=== PATIENT | female | born 1995 | race Caucasian/White ===

== ENCOUNTER 2016-07-23 00:39 | Emergency (ER) | payer BC ==
[2016-07-23 00:45] VITALS: BP 134/74
[2016-07-23] MEDS ORDERED: Albuterol/Ipratropium 3.0-0.5 MG/3 ML Neb Soln NEB ONE (00:53)
--- NOTE | 2016-07-23 00:53 | EDM.PDOC ---
ED HPI Allergic Reaction - General Chief Complaint: Allergic Reaction Stated Complaint: CHEST PAIN LABORED BREATHING Time Seen by Provider: 07/23/16 00:48 Source of Information: Reports: Patient History Limitations: Reports: No limitations - History of Present Illness INITIAL COMMENTS - FREE TEXT/NARRATIVE: 20-year-old female presents the ED with dyspnea and a sense of fullness across her lower chest. Patient has a chronic history of multiple allergies and history of asthma. Also has a history of anxiety depression. She reports no increasing cough or sputum production. No fever or chills. She is running and states that she's been able to do so without the use of albuterol inhaler prior to running. Tonight she started to feel restless and a little short of breath but which interpreted as a bit of a panic attack. However this pressure in her lower ribs and across her upper abdomen that she appreciated versus pressure in her throat or of central chest. She did use her albuterol nebulizer treatment at home with some improvement in her symptoms. She denies cough at this time. Still feels a little short of breath and somewhat restless. Symptom Onset Date: 07/22/16 Symptom Onset Time: 23:30 Timing/Duration: Reports: Minutes:, Gradual onset Location, Skin: Reports: chest (Shortness of breath and dyspnea-- sense that she cannot get a full deep breath.) Characteristics: Reports: other (Patient has chronic psoriasis controlled with Humira. This is her second course of Humira she just started again a month ago.) Quality: Reports: Other (Dyspnea) Severity: moderate Known identified source: no Place of Occurrence: home Sick Contact: no Associated Symptoms: Reports: shortness of breath, chest pain. 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 (see below) - Related Data Allergies/ADRs: Allergies Allergy/AdvReac Type Severity Reaction Status Date / Time apremilast [From Otezla] Allergy Hives Verified 03/31/16 02:47 cats, dogs, trees Allergy Hives Uncoded 03/31/16 02:47 shellfish Allergy Cannot Uncoded 03/31/16 02:47 Remember Home Meds: Home Meds Albuterol Sulfate 0.63 mg IH DAILY PRN 03/19/16 [History] Albuterol [Ventolin HFA] 8 gm INH QID PRN 03/19/16 [History] Budesonide [Pulmicort] 0.25 mg IH DAILY PRN 03/19/16 [History] Montelukast [Singulair] 10 mg PO ONETIME 03/19/16 [History] Triamcinolone Acetonide [Triamcinolone Acetonide 0.1% Crm] 15 gm TOP BID [History] Past Medical History Respiratory History: Reports: Asthma Psychiatric History: Reports: Anxiety, Depression Dermatologic History: Reports: Eczema, Psoriasis (Patient is currently on Humira for the second time for psoriasis control. Started again about a month ago) - Infectious Disease History Infectious Disease History: Reports: MRSA Other Infectious Disease History: throat Social & Family History - Tobacco Use Smoking Status *Q: Never Smoker Second Hand Smoke Exposure: No - Caffeine Use Caffeine Use: Reports: None - Recreational Drug Use Recreational Drug Use: No - Living Situation & Occupation Living situation: Reports: single, other (Dorm) Occupation: student ([employer]) ED ROS ALLERGIC REACTION - Review of Systems Review Of Systems: See Below Constitutional: Denies: fever, malaise, weakness, fatigue, decreased appetite, weight loss HEENT: Reports: Sinus problem (Chronic nasal congestion due to allergic rhinitis.) Respiratory: Reports: Shortness of Breath, Wheezing. Denies: Pleuritic Chest Pain (Was wheezing earlier.), Cough, Sputum, Hemoptysis, Other Cardiovascular: Reports: Chest pain (More chest discomfort across the lower ribs bilaterally.). Denies: Blood pressure problem, Claudication, Edema, Lightheadedness, Orthopnea, Palpitations, PND, Syncope, Other Endocrine: Reports: no symptoms GI/Abdominal: Reports: No symptoms. Denies: Abdominal pain : Reports: no symptoms Musculoskeletal: Reports: no symptoms Skin: Reports: other (Chronic eczema and psoriasis.) Neurological: Reports: No Symptoms Psychiatric: Reports: Anxiety (Mild.) Hematologic/Lymphatic: Reports: no symptoms Immunologic: Reports: no symptoms, other (Chronic allergies to multiple environmental and foods.) ED EXAM GENERAL NO PERIP PULSE - Physical Exam Exam: See Below Exam Limited By: No limitations General Appearance: alert, WD/WN, anxious, mild distress, other (Speaks as if she is nasally congested.) Ears: normal TMs Nose: other (Marked swelling of the turbinates bilaterally) Throat/Mouth: Normal inspection ( and I suspect a left sided nasal polyp.), Normal lips, Normal teeth, Normal gums, Normal oropharynx Head: atraumatic, normocephalic Neck: normal inspection, supple, non-tender, full range of motion. No: lymphadenopathy (L), lymphadenopathy (R) Respiratory/Chest: no respiratory distress, lungs clear, normal breath sounds, no accessory muscle use. No: crackles, rales, rhonchi, wheezing Cardiovascular: normal peripheral pulses, regular rate, rhythm, no edema, no murmur, tachycardia (Resting tachycardia 105 per minute.) GI/Abdominal: normal bowel sounds, soft, non tender, no organomegaly, other ( Firm --well muscular abdominal wall) Skin Exam: Warm, Dry, Other (Multiple changes in pigmentation where her psoriasis has plagued her. This involves her whole body. Skin is very dry and sandpaper like compatible with eczema.) Course - Vital Signs Last Recorded V/S: Last Vital Signs Temp 37.6 C 07/23/16 00:40 Pulse 103 H 07/23/16 00:40 Resp 16 07/23/16 00:40 BP 134/74 07/23/16 00:40 Pulse Ox 96 07/23/16 00:53 - Orders/Labs/Meds Orders: Active Orders 24 hr Category Date Time Status RT Aerosol Therapy [RC] ASDIRECTED Care 07/23/16 00:53 Active Chest 1V Frontal [CR] Stat Exams 07/23/16 00:54 Taken Meds: Medications Discontinued Medications Generic Name Dose Route Start Last Admin Trade Name Freq PRN Reason Stop Dose Admin Albuterol/Ipratropium 3 ml 07/23/16 00:53 07/23/16 01:06 Duoneb 3.0-0.5 Mg/3 Ml NEB 07/23/16 00:54 3 ml ONETIME ONE Administration - Radiology Interpretation Free Text/Narrative:: 20-year-old female presents to the ED to 2 dyspnea that occurred before bed tonight. She thought for well as this may be anxiety she related. She did take her albuterol nebulizer treatment it did seem to provide some relief but she still has a strong sense of dyspnea and pressure across her lower chest bilaterally. Still feels like she can't get a full deep breath. Exam reveals evidence of allergic rhinitis and eczema. History of chronic asthma. Motor exam shows O2 sats of 98-9% on room air. She a has good air entry bilaterally without any wheezing. She has mild to tachycardia at rest of 105 per minute. Acute from recent use of albuterol. Overall she does appear to be somewhat anxious. Plan a chest x-ray one view will be done. DuoNeb will be given and see how she feels. - Re-Assessments/Exams Free Text/Narrative Re-Assessment/Exam: 07/23/16 01:30 chest x-ray reveals hyperinflated lung balbuena. They are clear however. Minimal air in the stomach under the left hemidiaphragm. There is increased stool in the left colon and parts of the transverse colon visualized. She does feel better less dyspnea and flushing get a full deep breath after the DuoNeb treatment. I will therefore discharge her to home and she has multiple inhalers that she uses at home including Flonase and Breo etc. Departure - Departure Time of Disposition: 01:31 Disposition: Home, Self-Care 01 Condition: fair Clinical Impression: Exacerbation of asthma Forms: ED Department Discharge Additional Instructions: Evaluation in the ED tonight in regards to be exacerbation of her asthma most likely due to seasonal allergies with time of year. Oxygen saturations were normal were 90-99% but working a bit harder to get your breath. Chest x-ray reveals mild hyperinflated lung balbuena with some air trapping due to asthma chronically. No other abnormalities in the lungs are appreciated on x-ray. Penetrated with DuoNeb nebulizer treatment in the ED which will provide relief of bronchospasm for the next 6 hours. He may have to increase sure that your use of albuterol over the next several days if asthma symptoms persist. Followup with personal care physician if any further problems occur. - My Orders Last 24 Hours: My Active Orders 07/23/16 00:53 RT Aerosol Therapy [RC] ASDIRECTED 07/23/16 00:54 Chest 1V Frontal [CR] Stat - Assessment/Plan Last 24 Hours: My Active Orders 07/23/16 00:53 RT Aerosol Therapy [RC] ASDIRECTED 07/23/16 00:54 Chest 1V Frontal [CR] Stat
--- NOTE | 2016-07-23 07:05 | CR ---
Chest: Portable view of the chest was obtained. Comparison: Previous chest x-ray of 12/26/15. Heart size and mediastinum are normal. Lungs are clear. Bony structures are grossly intact. Impression: 1. Nothing acute is identified on portable chest x-ray. Diagnostic code #1
== END 2016-07-23 01:41 | disposition home or self-care (01) ==
LOC: JD.ED 00:39
DX: J45.901 Unspecified asthma with (acute) exacerbation (principal); F41.8 Other specified anxiety disorders; Z79.899 Other long term (current) drug therapy; Z91.013 Allergy to seafood
CPT/HCPCS: 71010; 71010-26; 94664; 99284; 99284-25

== ENCOUNTER 2016-07-28 22:24 | Emergency (ER) | payer BC ==
[2016-07-28 22:50] VITALS: BP 133/95
--- NOTE | 2016-07-28 23:10 | EDM.PDOC ---
ED HISTORY OF PRESENT ILLNESS - General Chief Complaint: Respiratory Problem Stated Complaint: COUGH/CONGESTION/FEVER/ACHES Time Seen by Provider: 07/28/16 23:10 Source of Information: Reports: Patient History Limitations: Reports: No limitations - History of Present Illness INITIAL COMMENTS - FREE TEXT/NARRATIVE: 20-year-old female with chronic asthma presents the ED with acute febrile illness paroxysmal cough and fever. Illness started the day before yesterday. Sputum that is coming up in small quantities is yellow in color without blood. She is chronically nasally congested from allergic rhinitis. Has pressure in both of her ears. A harsh paroxysmal cough particularly worse when she lies down. Symptom Onset Date: 07/26/16 Timing/Duration: Reports: Day(s):, Getting worse, Gradual onset Severity: moderate Location, General: Reports: chest Quality: Reports: Ache, Burning, Stabbing Improves with: Reports: Other (nebulizer treatments.) Worsens with: Reports: Other Context, General: Denies: Activity (lying down.), Exercise, Lifting, Sick contact, Trauma, Other Associated Symptoms (General): Reports: chest pain (upper chest with coughing.) , cough w sputum, fever/chills (fever without chills), shortness of breath. 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: Breathing treatments (albuterol and budesonide treatments at home.), NSAIDS (Motrin) - Related Data Allergies/ADRs: Allergies Allergy/AdvReac Type Severity Reaction Status Date / Time apremilast [From Otezla] Allergy Hives Verified 07/28/16 22:51 doxycycline Allergy Cannot Verified 07/28/16 22:51 Remember venlafaxine [From Effexor] Allergy Cannot Verified 07/28/16 22:51 Remember cats, dogs, trees Allergy Hives Uncoded 07/28/16 22:51 shellfish Allergy Cannot Uncoded 07/28/16 22:51 Remember Home Meds: Home Meds Albuterol Sulfate 0.63 mg IH DAILY PRN 03/19/16 [History] Albuterol [Ventolin HFA] 8 gm INH QID PRN 03/19/16 [History] Budesonide [Pulmicort] 0.25 mg IH DAILY PRN 03/19/16 [History] Montelukast [Singulair] 10 mg PO ONETIME 03/19/16 [History] Triamcinolone Acetonide [Triamcinolone Acetonide 0.1% Crm] 15 gm TOP BID [History] Hydrocodone/Chlorphen P-Stirex [Tussionex Pennkinetic Susp] 5 ml PO Q12H PRN # 60 ml 07/28/16 [Rx] Levofloxacin [Levaquin] 500 mg PO Q24H #9 tablet 07/28/16 [Rx] Past Medical History HEENT History: Reports: Allergic rhinitis, Impaired vision Respiratory History: Reports: Asthma Psychiatric History: Reports: Anxiety, Depression Dermatologic History: Reports: Eczema, Psoriasis, Other (see below) (history of atopy.) - Infectious Disease History Infectious Disease History: Reports: MRSA Other Infectious Disease History: throat Social & Family History - Family History Family Medical History: Noncontributory - Tobacco Use Smoking Status *Q: Never Smoker Second Hand Smoke Exposure: No - Caffeine Use Caffeine Use: Reports: None - Recreational Drug Use Recreational Drug Use: No - Living Situation & Occupation Living situation: Reports: single, other (Dorm) 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 Denies: Pleuritic Chest Pain, Hemoptysis Cardiovascular: Reports: Chest pain Endocrine: Reports: fatigue (will ache from coughing.) GI/Abdominal: Reports: Decreased appetite : Reports: no symptoms Musculoskeletal: Reports: no symptoms Skin: Reports: other (chronic eczema and psoriasis.) Neurological: Reports: No Symptoms ED EXAM, GENERAL - Physical Exam Exam: See Below Exam Limited By: No limitations General Appearance: alert, WD/WN, mild distress, other (is warm to palpation. Does have a harsh productive sounding cough and is very nasally congested.) Eye Exam: bilateral eye: normal inspection Ears: normal TMs Nose: other (severe turbinate swelling bilaterally. This is particularly worse on the left as compared to the right. No nasal polyps were identified.) Throat/Mouth: Normal inspection, Normal lips, Normal teeth, Normal oropharynx Head: atraumatic, other Neck: normal inspection, supple, non-tender, full range of motion. No: lymphadenopathy (L), lymphadenopathy (R) Respiratory/Chest: decreased breath sounds (to the posterior 30% of lung balbuena) , rhonchi (upper lungs bilaterally which clear somewhat with coughing.), wheezing (throughout all lung balbuena.). No: lungs clear, normal breath sounds, no accessory muscle use, chest non-tender Cardiovascular: normal peripheral pulses, regular rate, rhythm, no edema, no gallop, no JVD, no murmur, no rub, tachycardia (resting tachycardia of 112 per minute) Peripheral Pulses: 0: posterior tibial (R), 3+: posterior tibial (L), dorsalis pedis (L), dorsalis pedis (R) GI/Abdominal: normal bowel sounds, soft, non tender, no organomegaly, no abnormal bruit, no mass, other (mild to percussion in the upper abdomen compatible with aerophagia.) Back Exam: normal inspection, full range of motion. No: CVA tenderness (L), CVA tenderness (R) Extremities: normal inspection, normal range of motion, non-tender, no pedal edema, normal capillary refill Neurological: alert, oriented, CN II-XII intact, normal cognition Psychiatric: normal affect, normal mood Skin Exam: Warm, Dry, Intact, Normal color, No rash Course - Vital Signs Last Recorded V/S: Last Vital Signs Temp 38.2 C H 07/28/16 22:43 Pulse 109 H 07/28/16 22:43 Resp 20 07/28/16 22:43 BP 133/95 H 07/28/16 22:43 Pulse Ox 96 07/28/16 22:43 - Orders/Labs/Meds Meds: Medications Discontinued Medications Generic Name Dose Route Start Last Admin Trade Name Freq PRN Reason Stop Dose Admin Levofloxacin 500 mg 07/28/16 23:21 07/28/16 23:32 Levaquin PO 07/28/16 23:22 500 mg ONETIME ONE Administration - Radiology Interpretation Free Text/Narrative:: 20-year-old female with a history of atrophy with chronic asthma and nasal congestion presents to the ED with acute febrile illness with increased productive cough and wheezing. Examination suggests eustachian tube dysfunction nose is very congested bilaterally from chronic allergic rhinitis. Oropharynx is mildly inflamed without evidence of tonsillitis or exudate. Mild cervical lymphadenopathy appreciated bilaterally. Area tree is decreased of the posterior 30% of lung balbuena. Expiratory wheezes throughout all lobes of lung. Bronchi mostly anteriorly with a productive sounding cough.she has a home nebulizer machine.plan Levaquin 500 mg once daily for the next 10 days first tablet provided to the ED. Also a prescription for Tussionex cough syrup 5 mils at bedtime 2.5 mils in the morning if needed for cough control. 60 mm provided. She has Nebules she believes her nebulizer machine at home. Followup if not markedly improved in 72 hours time Departure - Departure Time of Disposition: 23:21 Disposition: Home, Self-Care 01 Condition: fair Clinical Impression: Acute bronchitis with asthma with acute exacerbation Prescriptions: Hydrocodone/Chlorphen P-Stirex [Tussionex Pennkinetic Susp] 5 ml PO Q12H PRN # 60 ml PRN Reason: cough relief. Levofloxacin [Levaquin] 500 mg PO Q24H #9 tablet Referrals: PCP,None [Primary Care Provider] - Forms: ED Department Discharge Additional Instructions: Evaluation in the emergency room tonight in regards to development of fever and exacerbation of asthma with very productive sounding cough. Diagnosis is bronchitis with exacerbation of asthma.only minimal wheezing appreciated in expiration at time of exam. Suggest treatment with antibiotic Levaquin 500 mg once daily at bedtime for the next 9 days. First it was provided to the ED tonight. I did write a prescription for cough syrup but I will leave up to you whether meet you are not G. to fill it. He would be a teaspoon primarily at bedtime about an hour before planning to go to bed to help with cough throughout the night. Needed during the daytime only half a teaspoon with be necessary. Continue home nebulizer treatments albuterol every 3 hours as needed for relief of cough and/or wheezing. He does deny twice daily until better. Followup with personal physician if not markedly improved in 72 hours time.continue Motrin 600 mg every 6 hours as needed for relief of fever.
[2016-07-28] MEDS ORDERED: Levofloxacin 250 MG Tab PO ONE (23:21)
== END 2016-07-28 23:38 | disposition home or self-care (01) ==
LOC: JD.ED 22:24
DX: J45.901 Unspecified asthma with (acute) exacerbation (principal); F41.8 Other specified anxiety disorders; L40.9 Psoriasis, unspecified; Z79.899 Other long term (current) drug therapy; Z91.013 Allergy to seafood; Z88.1 Allergy status to other antibiotic agents; Z88.8 Allergy status to other drugs, medicaments and biological substances
CPT/HCPCS: 99283; A9270

== ENCOUNTER 2017-01-15 20:34 | Emergency (ER) | payer BC ==
[2017-01-15 20:44] VITALS: BP 132/94
[2017-01-15] MEDS ORDERED: Ondansetron 4 MG Tab.DIS PO ONE (21:28)
--- NOTE | 2017-01-15 21:30 | EDM.PDOC ---
ED HPI GENERAL MEDICAL PROBLEM - General Chief Complaint: Respiratory Problem Stated Complaint: INFECTION NOT GOING AWAY ENT ISSUES Time Seen by Provider: 01/15/17 21:17 Source of Information: Reports: Patient History Limitations: Reports: No Limitations - History of Present Illness INITIAL COMMENTS - FREE TEXT/NARRATIVE: 21-year-old female presents for evaluation treatment of cold and sinus symptoms. Reports the symptoms have been going on for the last 3-4 days. She reports associated symptoms of an elevated temperature, cough, sinus pressure, headaches, eye pressure, earaches and sore throat. She also reports that she's been having some abdominal cramping. No diarrhea. Patient feels that her symptoms are steadily worsening. Patient was seen in the clinic yesterday. She had a rapid influenza screen done which was negative. She was prescribed Augmentin. She's now had about 3 doses of the Augmentin and does not feel this is helping today. Patient is concerned as she has multiple autoimmune diseases. Reports that she has psoriasis, psoriatic arthritis, alopecia and vitiligo. She is not currently on any steroids. she is on Humira. Patient also reports that she has severe asthma. Reports with any infection she often gets flares of her asthma. - Related Data Allergies Allergy/AdvReac Type Severity Reaction Status Date / Time apremilast [From Otezla] Allergy Hives Verified 07/28/16 22:51 doxycycline Allergy Cannot Verified 07/28/16 22:51 Remember venlafaxine [From Effexor] Allergy Cannot Verified 07/28/16 22:51 Remember cats, dogs, trees Allergy Hives Uncoded 07/28/16 22:51 shellfish Allergy Cannot Uncoded 07/28/16 22:51 Remember Home Meds: Home Meds Albuterol Sulfate 0.63 mg IH DAILY PRN 03/19/16 [History] Albuterol [Ventolin HFA] 8 gm INH QID PRN 03/19/16 [History] Budesonide [Pulmicort] 0.25 mg IH DAILY PRN 03/19/16 [History] Montelukast [Singulair] 10 mg PO ONETIME 03/19/16 [History] Triamcinolone Acetonide [Triamcinolone Acetonide 0.1% Crm] 15 gm TOP BID [History] Adalimumab [Humira Pen Crohn-Uc-Hs Starter] 1 applic SQ DAILY 01/15/17 [History] Fluocinonide 60 ml TP DAILY 01/15/17 [History] Fluticasone Furoate [Arnuity Ellipta] 1 appful PO DAILY 01/15/17 [History] Levonorgestrel-Ethin Estradiol [Galena-28 Tablet] 1 tab PO DAILY 01/15/17 [ History] Meloxicam [Meloxicam] 15 mg PO DAILY 01/15/17 [History] Ondansetron [Zofran ODT] 4 mg PO Q6H PRN #20 tab.dis 01/15/17 [Rx] Pimecrolimus [Elidel] 1 appful TOP DAILY 01/15/17 [History] Tretinoin [Tretinoin] 1 appful TOP DAILY 01/15/17 [History] atoMOXetine HCl [Strattera] 100 mg PO DAILY 01/15/17 [History] Past Medical History HEENT History: Reports: Allergic Rhinitis, Impaired Vision Respiratory History: Reports: Asthma Psychiatric History: Reports: Anxiety, Depression Dermatologic History: Reports: Eczema, Psoriasis, Other (See Below) - Infectious Disease History Infectious Disease History: Reports: MRSA Other Infectious Disease History: throat Social & Family History - Family History Family Medical History: Noncontributory - Tobacco Use Smoking Status *Q: Never Smoker Second Hand Smoke Exposure: No - Caffeine Use Caffeine Use: Reports: None - Recreational Drug Use Recreational Drug Use: No - Living Situation & Occupation Living situation: Reports: Single, Other Occupation: Student ED ROS GENERAL - Review of Systems Review Of Systems: See Below Constitutional: Reports: Malaise. Denies: Fever (reports elevated temperation of 99) HEENT: Reports: Ear Pain (bilateral), Throat Pain Respiratory: Reports: Cough GI/Abdominal: Reports: Abdominal Pain (reports abdominal cramping), Nausea. Denies: Diarrhea, Vomiting Neurological: Reports: Headache ED EXAM, GENERAL - Physical Exam Exam: See Below Exam Limited By: No Limitations General Appearance: Alert, WD/WN, No Apparent Distress Eye Exam: Bilateral Eye: Normal Inspection Ears: Normal External Exam, Normal Canal, Hearing Grossly Normal, Normal TMs Ear Exam: Bilateral Ear: TM normal Nose: Normal Inspection Throat/Mouth: Normal Inspection, Normal Lips, Normal Voice, No Airway Compromise Neck: Normal Inspection, Full Range of Motion Respiratory/Chest: No Respiratory Distress, Lungs Clear, Normal Breath Sounds Cardiovascular: Normal Peripheral Pulses, Regular Rate, Rhythm, No Murmur Neurological: Alert, Oriented, Normal Cognition Psychiatric: Normal Affect, Normal Mood Skin Exam: Warm, Dry, Normal Color Course - Vital Signs Last Recorded V/S: Last Vital Signs Temp 36.9 C 01/15/17 20:41 Pulse 100 01/15/17 20:41 Resp 16 01/15/17 20:41 BP 132/94 H 01/15/17 20:41 Pulse Ox 100 01/15/17 20:41 - Orders/Labs/Meds Orders: Active Orders 24 hr Category Date Time Status Chest 2V [CR] Stat Exams 01/15/17 21:28 Ordered CULTURE STREP A CONFIRMATION [RM] Stat Lab 01/15/17 21:44 Results STREP SCRN A RAPID W CULT CONF [] Stat Lab 01/15/17 21:28 Uncollected Labs: Laboratory Tests 01/15/17 01/15/17 Range/Units 21:45 21:45 WBC 6.73 (3.98-10.04) K/mm3 RBC 4.37 (3.98-5.22) M/mm3 Hgb 13.6 (11.2-15.7) gm/L Hct 39.2 (34.1-44.9) % MCV 89.7 (79.4-94.8) fl MCH 31.1 (25.6-32.2) pg MCHC 34.7 (32.2-35.5) g/dl RDW Std Deviation 39.4 (36.4-46.3) fL Plt Count 280 (182-369) K/mm3 MPV 10.8 (9.4-12.3) fl Neut % (Auto) 58.6 (34.0-71.1) % Lymph % (Auto) 25.1 (19.3-51.7) % Cameron % (Auto) 8.3 (4.7-12.5) % Eos % (Auto) 7.6 H (0.7-5.8) Baso % (Auto) 0.3 (0.1-1.2) % Neut # (Auto) 3.94 (1.56-6.13) K/mm3 Lymph # (Auto) 1.69 (1.18-3.74) K/mm3 Cameron # (Auto) 0.56 H (0.24-0.36) K/mm3 Eos # (Auto) 0.51 H (0.04-0.36) K/mm3 Baso # (Auto) 0.02 (0.01-0.08) K/mm3 Sodium 140 (136-145) mEq/L Potassium 3.9 (3.5-5.1) mEq/L Chloride 104 (98-107) mEq/L Carbon Dioxide 23 (21-32) mEq/L Anion Gap 16.9 H (5-15) BUN 10 (7-18) mg/dL Creatinine 0.8 (0.55-1.02) mg/dL Est Cr Clr Drug Dosing 102.39 mL/min Estimated GFR (MDRD) > 60 (>60) mL/min BUN/Creatinine Ratio 12.5 L (14-18) Glucose 109 H (74-106) mg/dL Calcium 9.6 (8.5-10.1) mg/dL C-Reactive Protein < 0.2 (<1.0) mg/dL Meds: Medications Discontinued Medications Generic Name Dose Route Start Last Admin Trade Name Freq PRN Reason Stop Dose Admin Ondansetron HCl 4 mg 01/15/17 21:28 01/15/17 21:43 Zofran Odt PO 01/15/17 21:29 4 mg ONETIME ONE Administration - Radiology Interpretation Free Text/Narrative:: chest 2 view shows no acute intrathoracic process. - Re-Assessments/Exams Free Text/Narrative Re-Assessment/Exam: 01/15/17 22:37 The patient's rapid strep returned negative. I reviewed the remainder of the lab results with the patient and her chest x- ray. I will have her continue on her Augmentin as prescribed. Follow-up if not much better within 2 weeks. Discharge instructions as documented. Departure - Departure Time of Disposition: 22:38 Disposition: Home, Self-Care 01 Condition: Good Clinical Impression: Sinus infection - Discharge Information Prescriptions: Ondansetron [Zofran ODT] 4 mg PO Q6H PRN #20 tab.dis PRN Reason: Nausea Instructions: Sinusitis, Adult, [id number] Referrals: Kristine Wilson PA-C [Primary Care Provider] - Forms: ED Department Discharge Additional Instructions: Zofran 1 tab sublingual every 6 hours as needed for nausea. Continue with your current plan of care. Continue on the Augmentin as prescribed. Recommend taking this with food. May take [id number] Tylenol or Motrin as needed for additional symptom relief. Rest. Make sure you're drinking plenty of fluids. Follow-up with your primary care provider if your symptoms are now much better in 2 weeks. Please return to the ER if your symptoms change or worsen. - My Orders Last 24 Hours: My Active Orders 01/15/17 21:28 Chest 2V [CR] Stat STREP SCRN A RAPID W CULT CONF [RM] Stat 01/15/17 21:44 CULTURE STREP A CONFIRMATION [RM] Stat - Assessment/Plan Last 24 Hours: My Active Orders 01/15/17 21:28 Chest 2V [CR] Stat STREP SCRN A RAPID W CULT CONF [RM] Stat 01/15/17 21:44 CULTURE STREP A CONFIRMATION [RM] Stat
--- NOTE | 2017-01-16 06:46 | CR ---
Chest: Two views of the chest were obtained. Comparison: Prior chest x-ray of 07/23/16 is available. Heart size and mediastinum are normal. Lungs are clear. Bony structures are unremarkable. Impression: 1. Nothing acute is identified on two-view chest x-ray. Diagnostic code #1
== END 2017-01-15 22:50 | disposition home or self-care (01) ==
LOC: JD.ED 20:34
DX: J32.9 Chronic sinusitis, unspecified (principal); J45.909 Unspecified asthma, uncomplicated; Z86.14 Personal history of Methicillin resistant Staphylococcus aureus infection; Z88.8 Allergy status to other drugs, medicaments and biological substances; Z79.899 Other long term (current) drug therapy
CPT/HCPCS: 36415; 71020; 80048; 85025; 86140; 87081; 87430; 99283; A9270